=== PATIENT | female | born 1940 | race Caucasian/White ===

== ENCOUNTER 2020-04-24 19:31 | Inpatient (IN) | payer OTHER ==
[~2020-04-24] VITALS: Ht 157.5 cm; Wt 61.2 kg
[2020-04-24] MEDS ORDERED: SINGULAIR5 MG (19:46)
[2020-04-24] MEDS ORDERED: SIMVASTATIN5 MG (19:46)
[2020-04-24] MEDS ORDERED: ZESTRIL5 MG (19:46)
[2020-04-24] MEDS ORDERED: NORVASC5 MG (19:46)
[2020-04-24] MEDS ORDERED: LEVO-T50 MCG (19:47)
--- NOTE | 2020-04-24 20:24 | NUR ---
PT ALERTA Y ORIENTADA X3 ESFERAS EN COMPANIA DE FAMILIAR, TRAIDA DESDE AMBULANCIA DESDE EL HOSPITAL: [facility] POR DX COLELITIASIS. ACEPTADA POR DR RAJPUT Y DR OLIVEROS. SE REALIZAN S/V Y SE REPORTAN EN SUSTEMA. SE UNIBA PT EN JT, SE PRESENTA A DR FLORES. SE LE ORIENTA SOBRE [place] Y REFIERE ENTEDER. SE HE MUESTRAS DE TERESE Y VENOPUNCION CON TECNICAS ASEPTICAS. SE ADMINSITRAN MEDICAMENTOS E IVLFUIDS. PT [place].
== END 2020-04-30 11:38 | disposition home or self-care (01) | DRG 446 ==
LOC: ER 19:31 → SEC-K 21:20 → MEDI 21:20 → SURH 04-25 21:03 → SEC-K 04-25 21:29 → MEDJ 04-26 10:58 → MEDI 04-26 10:58
PROVIDERS: ADMIT Internal Medicine; ATTEND Internal Medicine
PROC: 0DJ08ZZ Inspection of Upper Intestinal Tract, Via Natural or Artificial Opening Endoscopic (ICD-10-PCS; principal; 2020-04-29)
DX: K80.50 Calculus of bile duct without cholangitis or cholecystitis without obstruction (principal); Z20.828 Contact with and (suspected) exposure to other viral communicable diseases